=== PATIENT | female | born 2000 | race Caucasian/White ===

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

== ENCOUNTER 2020-05-19 14:29 | Emergency (ER) | payer OTHER ==
[~2020-05-19] VITALS: Ht 162.6 cm; Wt 95.3 kg
[~2020-05-19 14:29] MED LIST changes: +ONDANSETRON ODT8 MG PO; +TRAZODONE HCL100 MG PO
[2020-05-19] MEDS ORDERED: CITALOPRAM HBR10 MG PO (15:11)
[2020-05-19] MEDS ORDERED: ONDANSETRON ODT8 MG PO (17:40)
[2020-05-19] MEDS ORDERED: OMEPRAZOLE20 MG PO (17:40)
== END 2020-05-19 17:56 | disposition home or self-care (01) ==
LOC: ED 14:29
DX: K29.00 Acute gastritis without bleeding (principal)
CPT/HCPCS: 80053; 80176; 81001; 84443; 84703; 85025; 99284

== ENCOUNTER 2020-09-06 10:19 | Emergency (ER) | payer OTHER ==
[~2020-09-06] VITALS: Ht 162.6 cm; Wt 98.0 kg
[~2020-09-06 10:19] MED LIST changes: +CITALOPRAM HBR10 MG PO; +OMEPRAZOLE20 MG PO
[2020-09-06] MEDS ORDERED: DULOXETINE HCL30 MG PO (10:38)
[2020-09-06] MEDS ORDERED: PROPRANOLOL HCL10 MG PO (10:39)
--- NOTE | 2020-09-06 15:02 | EKG ---
[facility] [address] [place], [place] [address] Signed Sinus rhythm with marked sinus arrhythmia Otherwise normal ECG When compared with ECG of 15-DEC-2016 15:14, No significant change was found Confirmed by KRISTA LYNN MD ([id number]) on 09/06/2020 3:02:17 PM Electronically Signed By: KRISTA LYNN MD 09/06/20 1502 PATIENT NAME: ISABELCLOVER Electrocardiogram DATE OF : 00 PHYSICIAN: KRISTA LYNN MD REPORT #: [id number] REPORT IS CONFIDENTIAL AND NOT TO BE RELEASED WITHOUT AUTHORIZATION
== END 2020-09-06 11:21 | disposition home or self-care (01) ==
LOC: ED 10:19
DX: F41.9 Anxiety disorder, unspecified (principal)
CPT/HCPCS: 93005; 93010; 99283-25

== ENCOUNTER 2020-09-24 21:04 | Emergency (ER) | payer OTHER ==
[~2020-09-24] VITALS: Ht 162.6 cm; Wt 96.6 kg
[~2020-09-24 21:04] MED LIST changes: +DULOXETINE HCL30 MG PO; +PROPRANOLOL HCL10 MG PO
--- OUTSIDE RECORDS SUMMARY | 2020-09-24 21:06 | XMS ---
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 06/18/2020 19:39 - Other Details: PATIENT LWBS. CRITERIA MET - [facility] - 2 Visits in 30 Days CARE PROVIDERS ARSALAN CABRERA Creative Perfumer: [facility] PHONE: [phone] CHARLOTTE MUSA Internal Medicine 09/07/2020-Current PHONE: [phone] FELIPE MILLER Internal Medicine: Pulmonary Disease 11/05/2018-Current PHONE: Unknown Care Guidelines exist for the following facilities: [facility] ( 05/24/2020 ) Care History Medical/Surgical 11/05/2018 [facility] - Patient is currently established with [facility]. If patient is seen in the ED during business hours. Please contact CHWs at [facility]. Care Recommendation: This patient has had 5 or more Emergency Department visits in the last 12 months.\T\nbsp; Patient requires education on the scope and purpose of the ED as an acute care provider not a Primary Care Provider and should not be utilized for chronic conditions.\T\nbsp; These are guidelines and the provider should exercise clinical judgment when providing care. E.D. VISIT COUNT (12 MO.) 4 [facility]. TOTAL 4 NOTE: Visits indicate total known visits. ED/UCC VISIT TRACKING (12 MO.) 09/24/2020 21:05 [facility] TYPE: Emergency COMPLAINT: - FLU SYMPTOMS, FEVER 09/06/2020 10:21 [facility] TYPE: Emergency COMPLAINT: - DIZZY, HOT AND COLD FLASHES DIAGNOSES: - Anxiety disorder, unspecified - Dizziness and giddiness 06/18/2020 19:39 [facility] TYPE: Emergency COMPLAINT: - FREQUENT URINATION, BLOOD IN URINE 05/19/2020 14:30 [facility] TYPE: Emergency COMPLAINT: - MEDICAL CLEARANCE DIAGNOSES: - Acute gastritis without bleeding INPATIENT VISIT TRACKING (12 MO.) No inpatient visits to display in this time frame [id number]
[2020-09-24] MEDS ORDERED: OMEPRAZOLE20 MG PO (21:34)
== END 2020-09-24 22:55 | disposition home or self-care (01) ==
LOC: ED 21:04
DX: R50.9 Fever, unspecified (principal); Z20.822 Contact with and (suspected) exposure to COVID-19
CPT/HCPCS: 71045; 87081; 87880; 99283-25; C9803; U0003

== ENCOUNTER 2020-11-20 21:01 | Emergency (ER) | payer OTHER ==
[~2020-11-20] VITALS: Ht 165.1 cm; Wt 95.2 kg
== END 2020-11-20 21:35 | disposition home or self-care (01) ==
LOC: ED 21:01
DX: G89.29 Other chronic pain (principal); M54.5 Low back pain; Z79.899 Other long term (current) drug therapy
CPT/HCPCS: 99283

== ENCOUNTER 2021-02-24 18:23 | Emergency (ER) | payer OTHER ==
[~2021-02-24] VITALS: Ht 165.1 cm; Wt 96.2 kg
[2021-02-24] MEDS ORDERED: INTUNIV1 MG PO (19:48)
[2021-02-24] MEDS ORDERED: ONDANSETRON ODT4 MG PO (23:28)
[2021-02-24] MEDS ORDERED: DICYCLOMINE HCL10 MG PO (23:28)
== END 2021-02-24 23:51 | disposition home or self-care (01) ==
LOC: ED 18:23
DX: R11.2 Nausea with vomiting, unspecified (principal); R19.7 Diarrhea, unspecified; R10.10 Upper abdominal pain, unspecified; Z79.899 Other long term (current) drug therapy
CPT/HCPCS: 74177; 80053; 81001; 83690; 83735; 84703; 85025; 96374; 96376; 99284-25; J0500; J2405; J7121; Q9967

== ENCOUNTER 2021-06-10 21:34 | Emergency (ER) | payer OTHER ==
[~2021-06-10] VITALS: Ht 165.1 cm; Wt 97.5 kg
[~2021-06-10 21:34] MED LIST changes: +DICYCLOMINE HCL10 MG PO; +INTUNIV1 MG PO; +ONDANSETRON ODT4 MG PO
[2021-06-10] MEDS ORDERED: MOBIC15 MG PO (23:53)
== END 2021-06-11 00:14 | disposition home or self-care (01) ==
LOC: ED 21:34
DX: S39.012A Strain of muscle, fascia and tendon of lower back, initial encounter (principal); Z79.899 Other long term (current) drug therapy; X50.9XXA Other and unspecified overexertion or strenuous movements or postures, initial encounter
CPT/HCPCS: 72100; 84703; 99283-25

== ENCOUNTER 2021-07-17 21:26 | Emergency (ER) | payer OTHER ==
[~2021-07-17] VITALS: Ht 165.1 cm; Wt 99.2 kg
[~2021-07-17 21:26] MED LIST changes: +MOBIC15 MG PO
[2021-07-17] MEDS ORDERED: TRAZODONE HCL100 MG PO (22:33)
[2021-07-17] MEDS ORDERED: OMEPRAZOLE40 MG PO (22:33)
[2021-07-18] MEDS ORDERED: ONDANSETRON ODT8 MG PO (00:41)
== END 2021-07-18 02:03 | disposition home or self-care (01) ==
LOC: ED 21:26
DX: A08.4 Viral intestinal infection, unspecified (principal); F43.10 Post-traumatic stress disorder, unspecified; Z79.899 Other long term (current) drug therapy
CPT/HCPCS: 36415; 74177; 80053; 81001; 83690; 83735; 84703; 85025; 99284-25; A9270; J2405; J7030; Q9967

== ENCOUNTER 2021-11-05 16:48 | Emergency (ER) | payer OTHER ==
[~2021-11-05] VITALS: Ht 165.1 cm; Wt 102.1 kg
[~2021-11-05 16:48] MED LIST changes: +OMEPRAZOLE40 MG PO
== END 2021-11-05 18:14 | disposition home or self-care (01) ==
LOC: ED 16:48
DX: S93.402A Sprain of unspecified ligament of left ankle, initial encounter (principal); X58.XXXA Exposure to other specified factors, initial encounter; F43.10 Post-traumatic stress disorder, unspecified; Z79.899 Other long term (current) drug therapy
CPT/HCPCS: 99283

== ENCOUNTER 2021-11-30 20:06 | Emergency (ER) | payer OTHER ==
[~2021-11-30] VITALS: Ht 165.1 cm; Wt 100.0 kg
--- OUTSIDE RECORDS SUMMARY | 2021-11-30 20:14 | XMS ---
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 CRITERIA MET - [facility] - 2 Visits in 30 Days CARE PROVIDERS ARSALAN CABRERA Room Service Bellhop: Clinical Garett FOSS PHONE: [phone] CHARLOTTE MUSA Internal Medicine 09/07/2020-Current PHONE: Unknown FELIPE MILLER Internal Medicine: Pulmonary Disease 11/05/2018-Current PHONE: Unknown Care Guidelines exist for the following facilities: [facility] ( 05/24/2020 ) Care History Medical/Surgical 11/05/2018 [facility] - Patient is currently established with [facility]. If patient is seen in the ED during business hours. Please contact CHWs at [facility]. Care Recommendation: This patient has had 5 [...] providing care. E.D. VISIT COUNT (12 MO.) 5 [facility]. TOTAL 5 NOTE: Visits indicate total known visits. ED/UCC VISIT TRACKING (12 MO.) 11/30/2021 20:07 [facility] TYPE: Emergency COMPLAINT: - FEVER 11/05/2021 16:49 [facility] TYPE: Emergency COMPLAINT: - EXTREMITY PAIN/INJURY DIAGNOSES: - Other moth exterminator (current) drug therapy - Post-traumatic stress disorder, unspecified - Sprain of unspecified ligament of left ankle, initial encounter - Exposure to other specified factors, initial encounter - Pain in left ankle and joints of left foot 07/17/2021 21:27 [facility] TYPE: Emergency COMPLAINT: - N/V/D DIAGNOSES: - Nausea with vomiting, unspecified - Viral intestinal infection, unspecified - Other moth exterminator (current) drug therapy - Post-traumatic stress disorder, unspecified 06/10/2021 21:35 [facility] TYPE: Emergency COMPLAINT: - R ARM PAIN/ NO INJ DIAGNOSES: - Low back pain, unspecified - Other fci (current) drug therapy - Other and unspecified overexertion or strenuous movements or postures, initial encounter - Strain of muscle, fascia and tendon of lower back, initial encounter - LOW BACK PAIN, UNSPECIFIED 02/24/2021 18:23 [facility] TYPE: Emergency COMPLAINT: - ABDOMINAL PAIN DIAGNOSES: - Diarrhea, unspecified - Nausea with vomiting, unspecified - Other moth exterminator (current) drug therapy - Upper abdominal pain, unspecified INPATIENT VISIT TRACKING (12 MO.) No inpatient visits to display in this time frame [id number]
== END 2021-11-30 23:21 | disposition home or self-care (01) ==
LOC: ED 20:06
DX: B34.9 Viral infection, unspecified (principal); Z20.822 Contact with and (suspected) exposure to COVID-19
CPT/HCPCS: 87502; 96372; 99283; J1885; U0003

== ENCOUNTER 2022-06-24 21:31 | Emergency (ER) | payer OTHER ==
[~2022-06-24] VITALS: Ht 165.1 cm; Wt 102.7 kg
[2022-06-24] MEDS ORDERED: BRINTELLIX20 MG PO (21:54)
[2022-06-24] MEDS ORDERED: BENZONATATE100 MG PO (23:12)
[2022-06-24] MEDS ORDERED: VENTOLIN HFA18 GM INH (23:12)
== END 2022-06-24 23:51 | disposition home or self-care (01) ==
LOC: ED 21:31
DX: J40 Bronchitis, not specified as acute or chronic (principal); F41.9 Anxiety disorder, unspecified; F43.10 Post-traumatic stress disorder, unspecified; Z79.899 Other long term (current) drug therapy; Z20.822 Contact with and (suspected) exposure to COVID-19
CPT/HCPCS: 36415; 71045; 80053; 85025; 87502; 96374; 99285-25; C9803; J2060; U0003

== ENCOUNTER 2024-10-02 15:26 | Emergency (ER) | payer OTHER ==
[~2024-10-02] VITALS: Ht 165.1 cm; Wt 106.0 kg
[~2024-10-02 15:26] MED LIST changes: +BENZONATATE100 MG PO; +BRINTELLIX20 MG PO; +VENTOLIN HFA18 GM INH
[2024-10-02] MEDS ORDERED: ACETAMINOPHEN 500 MG TAB PO ONE (16:15)
[2024-10-02] MEDS ORDERED: FLUVOXAMINE MAL50 MG PO (16:27)
[2024-10-02] MEDS ORDERED: DEXMETHYLPHENI2.5 MG PO (16:27)
[2024-10-02 16:44] LABS: BILIRUBIN, URINE NEGATIVE (negative); BLOOD/HGB, URINE NEGATIVE (Negative); KETONE, URINE NEGATIVE (Negative); LEUK ESTERASE, URINE NEGATIVE (negative); NITRITE, URINE NEGATIVE (negative)
[2024-10-02 16:55] LABS: BASOPHILS 0.4 % (0.1-1.2); EOSINOPHILS 1.7 % (0.7-5.8); HEMATOCRIT 43.3 % (34.1-44.9); HEMOGLOBIN 14.3 g/dL (11.2-15.7); LYMPHOCYTES 23.2 % (19.3-51.7); MCH 28.1 PG (25.6-32.2); MCV 85.1 fL (79.4-94.8); NEUTROPHILS 69.4 % (34.0-71.1); PLATELET COUNT 448 K/uL (182-369); RBC 5.09 M/uL (3.93-5.22)
[2024-10-02 16:58] LABS: AMPHETAMINES, URINE NEGATIVE (NEGATIVE); BARBITURATES, URINE NEGATIVE (NEGATIVE); BENZODIAZEPINE, URINE NEGATIVE (NEGATIVE); BUPRENORPHINE, URINE NEGATIVE (NEGATIVE); CANNABINOID, URINE POSITIVE (NEGATIVE); COCAINE, URINE NEGATIVE (NEGATIVE); ECSTASY, URINE NEGATIVE (NEGATIVE); FENTANYL, URINE NEGATIVE (NEGATIVE); METHADONE, URINE NEGATIVE (NEGATIVE); OPIATES, URINE NEGATIVE (NEGATIVE); OXYCODONE, URINE NEGATIVE (NEGATIVE); PHENCYCLIDINE, URINE NEGATIVE (NEGATIVE)
[2024-10-02 17:19] LABS: ACETAMINOPHEN 21 ug/mL (10-30); ALBUMIN 4.4 g/dL (3.4-5.0); ALBUMIN/GLOBULIN RATIO 1.19 (1.1-2.4); ALCOHOL, MEDICAL <3 ng/dL (<3); ALKALINE PHOSPHATASE 135 U/L (46-116); ALT (SGPT) 65 U/L (14-59); ANION GAP 15.8 (7-21); AST (SGOT) 28 U/L (15-37); BILIRUBIN, TOTAL 0.4 mg/dL (0.2-1.0); BUN/CREATININE RATIO 17.64 (6.0-28.6); CALCIUM 9.5 mg/dL (8.5-10.1); CARBON DIOXIDE 23 mmol/L (21-32); CHLORIDE 106 mmol/L (98-107); CREATININE, SERUM 0.68 mg/dL (0.55-1.02); GLOMERULAR FILTRATION RATE,EST 125 mL/min (>60); POTASSIUM 3.8 mmol/L (3.5-5.1); PROTEIN, TOTAL 8.1 g/dL (6.4-8.2); SALICYLATE 1.9 mg/dL (2.8-20.0); TSH, 3RD GENERATION 2.574 uIU/mL (0.358-3.740); UREA NITROGEN 12 mg/dL (7-18)
[2024-10-02 19:03] VITALS: BP 132/87
== END 2024-10-02 19:00 | disposition home or self-care (01) ==
LOC: ED 15:26
PROVIDERS: Emergency Medicine
DX: F32.A Depression, unspecified (principal); F43.10 Post-traumatic stress disorder, unspecified
CPT/HCPCS: 36415; 80053; 80307; 81003; 84443; 84703; 85025; 99284; A9270; G0480

== ENCOUNTER 2025-01-12 07:14 | Emergency (ER) | payer OTHER ==
[~2025-01-12] VITALS: Ht 165.1 cm; Wt 104.0 kg
[~2025-01-12 07:14] MED LIST changes: +DEXMETHYLPHENI2.5 MG PO; +FLUVOXAMINE MAL50 MG PO
[2025-01-12] MEDS ORDERED: ARIPIPRAZOLE2 MG PO (07:27)
[2025-01-12] MEDS ORDERED: QUETIAPINE FUMA50 M1 PO (07:27)
[2025-01-12] MEDS ORDERED: SODIUM CHLORIDE 0.9% 1,000 ML IV ONE (07:45)
[2025-01-12 08:02] LABS: BASOPHILS 0.3 % (0.1-1.2); EOSINOPHILS 1.5 % (0.7-5.8); LYMPHOCYTES 26.5 % (19.3-51.7); MCH 28.5 PG (25.6-32.2); MCHC 33.4 g/dL (32.2-35.5); MCV 85.2 fL (79.4-94.8); MONOCYTES 5.5 % (4.7-12.5); NEUTROPHILS 66.1 % (34.0-71.1); RBC 4.85 M/uL (3.93-5.22)
[2025-01-12 08:13] LABS: ALT (SGPT) 44.0 U/L (14-59); AST (SGOT) 15.0 U/L (15-37); GLOMERULAR FILTRATION RATE,EST 132.0 mL/min (>60); PROTEIN, TOTAL 8.0 g/dL (6.4-8.2); UREA NITROGEN 10.0 mg/dL (7-18)
[2025-01-12 08:20] LABS: BLOOD/HGB, URINE NEGATIVE (Negative); KETONE, URINE NEGATIVE (Negative); LEUK ESTERASE, URINE NEGATIVE (negative); NITRITE, URINE NEGATIVE (negative)
[2025-01-12 08:39] VITALS: BP 121/88
== END 2025-01-12 08:39 | disposition home or self-care (01) ==
LOC: ED 07:14
PROVIDERS: Emergency Medicine
DX: R10.13 Epigastric pain (principal); R11.2 Nausea with vomiting, unspecified; Z79.899 Other long term (current) drug therapy
CPT/HCPCS: 36415; 80053; 81003; 83690; 84703; 85025; 96361; 96374; 99284-25; J2405; J7030